=== PATIENT | male | born 2000 | race Caucasian/White ===

== ENCOUNTER → 2022-07-14 09:40 | Outpatient (BNVA) | payer OTHER, SELFPAY | PROVIDERS: Visit Provider Emergency Medicine | DX: R68.89 Other general symptoms and signs (principal); J03.90 Acute tonsillitis, unspecified; R06.02 Shortness of breath | CPT/HCPCS: 87400 ==

== ENCOUNTER → 2022-08-27 15:25 | Outpatient (BNVA) | payer OTHER, SELFPAY | PROVIDERS: Visit Provider Nurse Practitioner Family | DX: Z20.2 Contact with and (suspected) exposure to infections with a predominantly sexual mode of transmission (principal) | CPT/HCPCS: 87491; 87591 ==